=== PATIENT | female | born 1985 | race Caucasian/White ===

== ENCOUNTER 2020-08-31 11:50 | Emergency (ER) | payer OTHER ==
[2020-08-31 13:19] LABS: BILIRUBIN NEGATIVE (NEGATIVE); BLOOD 1+ Ery/uL (NEGATIVE); CLARITY CLOUDY (CLEAR); COLOR YELLOW (YELLOW); GLUCOSE (U) NORMAL (NORMAL); LEUKOCYTES 1+ Leu/uL (NEGATIVE); NITRITE NEGATIVE (NEGATIVE); PROTEIN NEGATIVE (NEGATIVE); SPECIFIC GRAVITY 1.025 (1.001-1.030); UROBILINOGEN 0.2 mg/dL (0.2-1.0)
[2020-08-31 13:30] LABS: BACTERIA 1+; SQUAMOUS EPITHELIAL CELLS RARE; URINARY WBC 20-50
[2020-08-31] MEDS ORDERED: PYRIDIUM200 MG PO (13:36)
[2020-08-31] MEDS ORDERED: MACROBID100 MG PO (13:36)
== END 2020-08-31 15:39 | disposition home or self-care (01) ==
LOC: FER 11:50
PROVIDERS: Emergency Medicine
DX: N39.0 Urinary tract infection, site not specified (principal); F17.210 Nicotine dependence, cigarettes, uncomplicated; Z87.442 Personal history of urinary calculi
CPT/HCPCS: 81001; 99283